=== PATIENT | female | born 1950 | race Caucasian/White ===

== ENCOUNTER 2016-12-28 11:25 | Emergency (ER) | payer OTHER ==
[~2016-12-28] VITALS: Ht 165.1 cm; Wt 92.1 kg
[~2016-12-28 11:25] MED LIST: ADVAIR 250/501 DISK IH; ADVIL200 MG PO; BREO ELLIPTA I1 EACH IH; CARAFATE100 MG/ML PO; CHILDREN'S ASPI81 M1 PO; CLARITIN,ALAVAR10 MG PO; Claritin,Alavart PO; FLONASE ALLERG9.9 ML BOTH NARES; FLONASE16 G1 BOTH NARES; JANUMET 50/51 TABLET; JANUMET XR 1001 EACH PO; JANUVIA25 M1; Januvia PO; LEVOFLOXACIN750 MG PO; LEVOTHYROXINE100 MCG; LEVOTHYROXINE100 MCG PO; LIPITOR10 MG; LIPITOR10 MG PO; LISINOPRIL20 MG PO; Levothroid,Synthroid PO; METOPROLOL SUCC25 MG PO; MUCINEX1200 MG PO; Motrin PO; OMEPRAZOLE40 M1 PO; OMNICEF300 MG PO; PHENERGAN-CODE120 ML PO; PRILOSEC40 MG; PROAIR HFA8.5 GM IH; Protonix PO; VENTOLIN HFA18 GM IH; ZESTORETIC,P1 TABLE2 PO; ZOFRAN4 MG PO; ZYRTEC10 M2; Zestoretic,Prinzide PO; Zocor PO
[2016-12-28 13:58] LABS: CARBON DIOXIDE (BICARBONATE) 26.8 MEQ/L (20-31)
[2016-12-28 14:12] LABS: HEMATOCRIT 42.8 % (36.0-46.0); MCHC 32.2 G/DL (30.0-36.0); MCV 74.6 FL (83-99); MEAN PLAT.VOLUME 11.9 uM^3 (9.5-12.4); NRBC (%) 1.5 /100 WBC (0-0); PLATELET COUNT 181 K/uL (156-360); RBC DIS.WIDTH-CV 17.6 % (11.8-14.6); RBC DIS.WIDTH-SD 43.4 % (39-53); RED BLOOD COUNT 5.74 M/uL (3.80-5.20); WHITE BLOOD COUNT 13.1 K/uL (4.1-10.2)
[2016-12-28 14:18] LABS: CHLORIDE 101 mEq/L (99-109); POTASSIUM 4.7 mEq/L (3.7-5.4); SODIUM 133 mEq/L (136-147)
[2016-12-28 14:21] LABS: ANION GAP 9 MEQ/L (2-14)
[2016-12-28 14:23] LABS: GFR ESTIMATE (CALCULATED) 44 mL/min/; GLUCOSE 409 mg/dL (70-99)
[2016-12-28 14:24] LABS: UREA NITROGEN (BUN) 18 mg/dL (9-23)
[2016-12-28] MEDS ORDERED: TORADOL10 MG PO (14:54)
[2016-12-28] MEDS ORDERED: VALIUM5 MG PO (14:54)
[2016-12-28 14:59] LABS: POINT-OF-CARE METER ID UU13113800
[2016-12-28 15:15] VITALS: BP 170/79
[2017-01-02 08:29] LABS: POINT-OF-CARE METER ID UU13113800
== END 2016-12-28 15:15 | disposition home or self-care (01) ==
LOC: EME 11:25
PROVIDERS: Emergency Medicine; Physician Assistant
DX: M54.42 Lumbago with sciatica, left side (principal); M25.562 Pain in left knee; M25.462 Effusion, left knee; R73.9 Hyperglycemia, unspecified; I10 Essential (primary) hypertension; E03.9 Hypothyroidism, unspecified; Z79.82 Long term (current) use of aspirin
CPT/HCPCS: 80048; 82010; 82803; 82948; 85027; 99281; 99285; J1885; J7030